=== PATIENT | male | born 1990 ===

== ENCOUNTER 2017-03-04 10:08 | Emergency (ER) | payer SELFPAY ==
[~2017-03-04] VITALS: Ht 182.9 cm; Wt 84.0 kg
[2017-03-04 10:10] VITALS: BP 104/77; PULSE 89; RESP 17; TEMP 98.6; O2SAT 96
--- NOTE | 2017-03-04 11:05 | PD ---
HPI Chief Complaint: GI Complaint Time Seen by Provider: 10:56 Travel History International Travel<30 days: No Contact w/Intl Traveler<30days: No Traveled to known affect area: No History of Present Illness HPI 26-year-old male with no significant medical history presents to emergency department for evaluation of diarrhea after eating a gas station hot dog last night. Patient states he felt mildly nauseous immediately after eating. He felt like it was undercooked. Denies any blood in his stool. He does have some abdominal cramping prior to episodes of diarrhea, but is not having any pain currently. Denies any fever or chills. He has no other symptoms to report at this time. History Past Medical Histgory Medical History: Denies Significant Hx Social History Alcohol Use: No Tobacco Use: No Allergies-Medications (Allergen,Severity, Reaction): Coded Allergies: No Known Allergies (Unverified , 03/04/17) Review of Systems Except as stated in HPI: all other systems reviewed are Neg Physical Exam Narrative GENERAL: Well-nourished male patient in no acute distress SKIN: Focused skin assessment warm/dry. HEAD: Atraumatic. Normocephalic. EYES: Pupils equal and round. No scleral icterus. No injection or drainage. ENT: No nasal bleeding or discharge. Mucous membranes pink and moist. NECK: Trachea midline. No JVD. CARDIOVASCULAR: Regular rate and rhythm. No murmur appreciated. RESPIRATORY: No accessory muscle use. Clear to auscultation. Breath sounds equal bilaterally. GASTROINTESTINAL: Abdomen soft, non-tender, nondistended. Hepatic and splenic margins not palpable. MUSCULOSKELETAL: No obvious deformities. No clubbing. No cyanosis. No edema. NEUROLOGICAL: Awake and alert. No obvious cranial nerve deficits. Motor grossly within normal limits. Normal speech. PSYCHIATRIC: Appropriate mood and affect; insight and judgment normal. Data Data Last Documented VS Vital Signs Date Time Temp Pulse Resp B/P (MAP) Pulse Ox O2 Delivery O2 Flow Rate FiO2 03/04/17 10:10 98.6 89 17 104/77 (86) 96 MDM Medical Screen Exam Complete: Yes Emergency Medical Condition: No Differential Diagnosis diarrhea Narrative Course 26 year male presents to emergency department for evaluation of diarrhea after eating a gas station hot dog. Patient appears without distress. Abdominal exam is benign. He appears well. Vital signs are stable. I've encouraged patient to eat bland and binding food products. Encouraged hydration. At this time there are no urgent or emergent needs for medical intervention identified. A medical screening exam was performed: At the time of evaluation the presenting medical condition was determined not to be of an emergent nature. The patient was given the option of receiving additional care, but declined. Patient was given options for additional community resources from which to obtain care. The Patient Has Been advised to seek medical attention for their presenting complaint. The patient has been advised to return to the ER at any time if an emergent condition develops. Primary Impression: Encounter for medical screening examination Condition: Sharon Posey Mar 04, 2017 11:05
== END 2017-03-04 11:12 | disposition left against medical advice (07) ==
LOC: NEPD 10:08 → EDBD 10:08 → NEPD 11:12
DX: R19.7 Diarrhea, unspecified (principal); R11.0 Nausea; R10.9 Unspecified abdominal pain
CPT/HCPCS: 99281